=== PATIENT | male | born 1990 | race Caucasian/White ===

== ENCOUNTER 2017-10-30 14:04 | Emergency (ER) | payer MEDICAID ==
[~2017-10-30] VITALS: Ht 167.6 cm; Wt 76.2 kg
[2017-10-30 14:10] VITALS: BP 135/76
--- NOTE | 2017-10-30 14:16 | NUR ---
PT AMBULATED TO ER CHAIR A
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
--- NOTE | 2017-10-30 14:34 | NUR ---
PT AT XRAY AT THIS TIME.
[2017-10-30 15:57] VITALS: BP 130/73
--- NOTE | 2017-10-30 15:57 | NUR ---
Patient discharged with v/s stable. Written and verbal after care instructions given and explained. Patient verbalized understanding. Ambulatory with steady gait. All questions addressed prior to discharge. Advised to follow up with PMD.
== END 2017-10-30 15:57 | disposition home or self-care (01) ==
LOC: MED 14:04
DX: Z00.00 Encounter for general adult medical examination without abnormal findings (principal); V29.9XXD Motorcycle rider (driver) (passenger) injured in unspecified traffic accident, subsequent encounter
CPT/HCPCS: 71101; 99284

== ENCOUNTER 2019-12-30 02:10 | Emergency (ER) | payer MEDICAID, OTHER ==
[~2019-12-30] VITALS: Ht 167.6 cm; Wt 81.6 kg
[2019-12-30 02:12] VITALS: BP 131/80
--- NOTE | 2019-12-30 02:14 | NUR ---
PT TAKEN TO BED 4 VIA GURNEY.
[2019-12-30] MEDS ORDERED: TETRACAINE HCL/PF 0.5% OPTH 4 ML BTL OP ONE (02:15)
[2019-12-30] MEDS ORDERED: TETRACAINE HCL/PF 0.5% OPTH 4 ML BTL ONE (02:16)
--- NOTE | 2019-12-30 02:19 | NUR ---
AT BEDSIDE INSTILLING EYE DROPS WITH GENNARO MENJIVAR , ASSISTING
[2019-12-30] MEDS ORDERED: TETRACAINE 1% 2 ML AMP INJ ONE (02:20)
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
--- NOTE | 2019-12-30 02:29 | NUR ---
AT BEDSIDE SPEAKING WITH PT
[2019-12-30 02:30] VITALS: BP 131/80
--- NOTE | 2019-12-30 02:30 | NUR ---
Patient discharged with v/s stable BY . Written and verbal after care instructions given and explained BY . Patient verbalized understanding. Ambulatory with steady gait. All questions addressed prior to discharge BY . Advised to follow up with PMD BY .
== END 2019-12-30 02:30 | disposition home or self-care (01) ==
LOC: MED 02:10
DX: H04.123 Dry eye syndrome of bilateral lacrimal glands (principal)
CPT/HCPCS: 99283

== ENCOUNTER 2020-02-18 08:16 | Emergency (ER) | payer OTHER ==
[~2020-02-18] VITALS: Ht 167.6 cm; Wt 83.9 kg
[2020-02-18 08:25] VITALS: BP 141/73
[2020-02-18] MEDS ORDERED: LORazepam 2 MG/ML VIAL IM ONE (08:50)
[2020-02-18 09:11] VITALS: BP 141/73
== END 2020-02-18 09:11 | disposition home or self-care (01) ==
LOC: MED 08:16
DX: F41.9 Anxiety disorder, unspecified (principal); F17.210 Nicotine dependence, cigarettes, uncomplicated; Z71.6 Tobacco abuse counseling
CPT/HCPCS: 96372; 99283; J2060

== ENCOUNTER 2023-04-28 12:21 | Emergency (ER) | payer OTHER ==
[~2023-04-28] VITALS: Ht 170.2 cm; Wt 81.6 kg
[2023-04-28 12:52] VITALS: BP 113/58; PULSE 85; RESP 18; TEMP 98.3; O2SAT 97
[2023-04-28] MEDS ORDERED: FAMOTIDINE 20 MG TAB PO ONE (13:05)
[2023-04-28] MEDS ORDERED: ALUMINUM HYD/MAG/SIMETHICONE 30 ML UDC PO ONE (13:05)
[2023-04-28] MEDS ORDERED: ONDANSETRON 4 MG TAB PO ONE (13:05)
[2023-04-28] MEDS ORDERED: DICYCLOMINE HCL LIQUID 20 MG, ALUMINUM HYD/MAG/SIMETHICONE 30 ML, LIDOCAINE VISCOUS 2% ... PO ONE ×3 (13:20)
[2023-04-28 13:21] VITALS: O2SAT 97
[2023-04-28] MEDS ORDERED: DICYCLOMINE HCL LIQUID 10 MG/5 ML UDC ONE (13:24)
[2023-04-28] MEDS ORDERED: ALUMINUM HYD/MAG/SIMETHICONE 30 ML UDC ONE (13:24)
[2023-04-28 13:59] LABS: FLU A ANTIGEN negative (NEGATIVE); FLU B ANTIGEN negative (NEGATIVE)
[2023-04-28 14:22] VITALS: BP 113/58; PULSE 85; RESP 18; TEMP 98.3; O2SAT 97
== END 2023-04-28 14:24 | disposition home or self-care (01) ==
LOC: MED 12:21
DX: B34.9 Viral infection, unspecified (principal); Z20.822 Contact with and (suspected) exposure to COVID-19
CPT/HCPCS: 99283